=== PATIENT | female | born 1985 | race Caucasian/White ===

== ENCOUNTER → 2017-12-18 09:29 | Outpatient (CLI) | payer OTHER, SELFPAY ==
[2017-12-18 13:11] LABS: AST(SGOT) 14 U/L (15-37); Alanine Aminotransfer ALT/SGPT 43 U/L (13-56); Albumin, Serum 3.7 g/dL (3.2-5.0); Alkaline Phosphatase 112 U/L (45-117); Globulin 3.8 g/dL (2.2-4.2); Lipase 178 U/L (73-393); Protein, Total 7.5 g/dL (6.4-8.2)
== END ==
PROVIDERS: Family Provider Family Medicine; PCP Family Medicine; Visit Provider Internal Medicine Gastroenterology
DX: R10.9 Unspecified abdominal pain (principal); Z90.49 Acquired absence of other specified parts of digestive tract
CPT/HCPCS: 36415; 80076; 83690

== ENCOUNTER → 2018-01-28 15:40 | Outpatient (CLI) | payer OTHER, SELFPAY ==
--- NOTE | 2018-01-28 15:43 | RAD_ITS ---
STUDY: X-RAY - LUMBAR SPINE REASON FOR EXAM: Female, 33 years old. Low back pain. TECHNIQUE: 5 view(s) of the lumbar spine were obtained. COMPARISON: None FINDINGS: Normal lumbar lordosis. There is no substantial scoliosis. There is a normal alignment of the vertebrae. Bilateral pars defects of L5 without significant anterolisthesis. Normal disc heights throughout the lumbar spine. No compression fracture. The soft tissue structures are unremarkable. RAD/L/S Spine Min 4 Views IMPRESSION: Bilateral pars defects of L5 without significant anterolisthesis. No acute abnormalities or significant degenerative changes. Electronically Signed: Moise Bonilla MD at 22:30 EDT , Service support ,
== END ==
PROVIDERS: Family Provider Family Medicine; PCP Family Medicine; Visit Provider Family Medicine
DX: M54.42 Lumbago with sciatica, left side (principal)
CPT/HCPCS: 72110

== ENCOUNTER 2018-02-13 07:43 | Outpatient (RCR) | payer OTHER, SELFPAY ==
--- NOTE | 2018-02-13 09:02 | HP.PTEVAL_ITS ---
Patient's Visit Information GUERO RAINEY is a 33 year old F referred to Physical Therapy by Abel Franklin with a diagnosis of LUMBAGO WITH SCIATICA. Date of Evaluation: 02/13/18 Physical Therapist: Shara Cosme - Visit Plan Frequency: 2-3x /Week Duration: 4-6 Weeks Plan: POSTURE CORRECTION/STRENGTHENING, INSTRUCTION IN APPROPRIATE BODY MECHANICS AND ACTIVITY MODIFICATIONS. CORE STRENGTHENING AND STABILITY. ALIREZA LE ROM, STRETCHING AND STRENGTHENING. HEP INSTRUCTION. - Subjective Subjective: Diagnosis: LUMBAGO WITH SCIATICA. 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 MOSTLY SITTING. Disability: NO. Present symptoms: CENTRAL LOW BACK PAIN. RECENT HISTORY OF LEFT BUTTOCK AND THIGH PAIN. Present since: 6 WEEKS AGO. Pain Scale: WORST 3/10, LEAST 0/10. Currently: 10/30. Commenced as a result of: NO APPARENT REASON. Symptoms at onset: LOW BACK. Worse: BENDING FORWARD, HURTS WORSE IN THE MORNING, LIFTING. BENDING OVER TO LIFT ONE YEAR OLD AND 5 YEAR OLD. Better: PAIN MEDICATION - VICODIN. HASN'T HAD TO TAKE ANY FOR LAST COUPLE DAYS THOUGH. HEAT. Disturbed sleep: NO. Previous history/Previous treatment: 2006 SLIPPED AND FELL IN DORM SHOWER RESULTING IN LOW BACK PAIN. MRI SHOWED 2 HNP' S. TOOK ABOUT 18 MONTHS TO REVOVER. DID NOT DO PT. HISTORY OF SCIATICA WITH THE INJURY BUT NOT SURE WHICH LEG. ONE CHIRO VISIT. NO BACK SURGERY. NO INJECTIONS. Coughing/sneezing/straining: NEGATIVE. Gait: WAS WALKING HUNCHED OVER BUT BETTER NOW. Difficulty initiating urinatin: NO. Accidents: NO. Unexplained weight loss: NO. Imaging: RECENT LUMBAR X-RAY: Bilateral pars defects of L5 without significant anterolisthesis. No acute. abnormalities or significant degenerative changes. PMH: UNREMARKABLE. Recent major surgery: HYSTERECTOMY MARCH 2017. OTHER: IN A LOT OF PAIN AT FIRST AND THAT IS WHY SHE WENT TO THE DOCTOR. MUCH BETTER NOW. - Objective Sitting Posture: FAIR. Standing Posture: POOR. SLOUCHED WITH FORWARD HEAD AND ROUNDED SHOULDERS. Lordosis: NORMAL. Lateral shift: NO. Relevant shift: N /A. Active Correction of posture: NE. Other Observations: INDEP GAIT AND TRANSFERS. Motor deficit: ALIREZA LE STRENGTH 5/5 WITH MMT EXCEPT HIPS GRADED 4/5. Sensory deficit: NO. ROM deficit: TIGHT ALIREZA HS'S AND GASTROC SOLEUS COMPLEX 'S. Reflexes: 2/3 ALIREZA LE'S. Dural Signs: NEGATIVE ALIREZA LE'S. Lumbar mvmt loss: flex - MIN (APPEARS TO BE HAMSTRING LIMITED). ext - MIN WITH ERP. R SG - NIL. L SG - NIL WITH ERP. PAIN THAT IS PROVOKED IS CENTRAL LBP AND NO LE SX'S PROVOKED. Core strength: POOR. Palpation: NO PALPABLE TENDERNESS. - Goals Goal 1:: DECREASE C/O BACK AND LE SX'S Goal Time Frame: 4-6 Weeks Goal 2:: IMPROVE LIFTING, STANDING, TRAVEL, WORK AND HOMEMAKING FUNCTION Goal Time Frame: 4-6 Weeks Goal 3:: INSTRUCT IN PROPHYLAXIS Goal Time Frame: 4-6 Weeks - Rehabilitation Potential Rehabilitation Potential: Fair - Anticipated Interventions Patient/Client Instruction: Educate patient on: Condition, Plan of Care, Risk Factors, Benefits of Fitness Program For the Purpose of:: To improve self management Therapeutic Exercise to Include: Strength training, Body mechanics, Postural training, Flexibilty training, Dynamic Lumbar Stabilization For the Purpose of:: To decrease pain, To improve muscle performance and motor function, To improve ability of physical actions for home/community/work/leisure TENS: Yes IF ES: Yes Cryotherapy (ice pack, ice massage): Yes Thermo therapy (hot pack): Yes Ultrasound (thermal/non thermal): Yes For the Purpose of:: To decrease pain, To decrease swelling/inflammation, To improve nutrient delivery to tissue Thank you for the opportunity to evaluate your patient. For Medicare and Medicare HMO plans, please review the plan of care and approve it. It will need to be FAXED BACK to us at [phone] for Medicare purposes. Please let me know if there are questions or concerns regarding this plan of care. Physician Signature: Date:
--- NOTE | 2018-05-25 13:07 | HP.PT.NRP ---
HP - Discharge Summary (1) - Patient Information GUERO RAINEY was seen in my office for initial evaluation on 02/13/18. The following Plan of Care was established for this patient: Initial Frequency: 2-3x /Week Initial Duration: 4-6 Weeks - Anticipated Interventions Patient/Client Instruction: Educate patient on: Condition, Plan of Care, Risk Factors, Benefits of Fitness Program For the Purpose of:: To improve self management Therapeutic Exercise to Include: Strength training, Body mechanics, Postural training, Flexibilty training, Dynamic Lumbar Stabilization For the Purpose of:: To decrease pain, To improve muscle performance and motor function, To improve ability of physical actions for home/community/work/leisure TENS: Yes IF ES: Yes Cryotherapy (ice pack, ice massage): Yes Thermo therapy (hot pack): Yes Ultrasound (thermal/non thermal): Yes For the Purpose of:: To decrease pain, To decrease swelling/inflammation, To improve nutrient delivery to tissue This patient was last seen in our office 02/13/18. Pertinent comments regarding their Physical therapy will appear below: This patient has not returned to Physical Therapy and is appropriate to return to MD for further follow-up as needed. At this point I will be discontinuing this patient from physical therapy. I would be happy to see this patient again in the future if found appropriate by the physician. Thank you! Shara Cosme
== END 2018-02-13 19:00 | disposition home or self-care (01) ==
LOC: PT 07:43
PROVIDERS: Family Provider Family Medicine; PCP Family Medicine; Visit Provider Family Medicine
DX: M54.40 Lumbago with sciatica, unspecified side (principal)
CPT/HCPCS: 97161; 97530

== ENCOUNTER → 2018-04-22 12:55 | Outpatient (CLI) | payer OTHER, SELFPAY ==
[2018-04-22 14:24] LABS: Absolute Neutrophil Count 4.5 X10^3/uL (2.0-7.7); Basophil# 0.04 X10^3/uL; Basophil% 0.5 % (0-1); Eosinophil# 0.09 X10^3/uL; Eosinophils% 1.2 % (0-5); Hematocrit 38.5 % (37-47); Hemoglobin 12.3 g/dl (12.0-15.0); Lymphocyte % 31.4 % (19-41); Mean Corp Hgb Conc 31.9 g/gl (32-36); Mean Corpuscular Hgb 26.7 pg (27.0-32.0); Mean Corpuscular Volume 83.5 fL (81-99); Mean Platelet Vol. 10.9 fl (6.2-12.0); Monocyte# 0.37 X10^3/uL; Neutrophil # 4.52 X10^3/uL (2.7-7.7); Neutrophil % 61.8 % (47-70); Platelet Count 278 K/mm3 (150-450); RBC Distribution Width CV 13.5 % (11.6-14.6); Red Blood Count 4.61 M/mm3 (4.2-5.4); White Blood Count 7.3 K/mm3 (4.4-11.0)
[2018-04-22 14:25] LABS: Erythrocyte Sedimentation Rate 7 mm/hr (0-20)
[2018-04-22 14:30] LABS: POSITIVE COUNT NO; POSITIVE DIFFERENTIAL NO; POSITIVE MORPHOLOGY NO
[2018-04-22 15:07] LABS: AST(SGOT) 23 U/L (15-37); Alanine Aminotransfer ALT/SGPT 41 U/L (13-56); Albumin, Serum 3.7 g/dL (3.2-5.0); Alkaline Phosphatase 81 U/L (45-117); Anion Gap 8 (5-15); BUN 12 mg/dL (7-18); BUN/Creat Ratio 17.6 RATIO (10-20); CRP < 2.90 mg/L (0.0-3.0); Calcium,Total 8.5 mg/dL (8.5-10.1); Chloride 108 mmol/L (98-107); Creatinine, Serum 0.68 mg/dL (0.55-1.02); EST Glomerular Filtration Rate 107 mL/min (>60); Est Glom Filt Rate - Afr Amer 129 mL/min (>60); Follicle Stimulating Hormone 3.3 mIU/mL; Globulin 3.8 g/dL (2.2-4.2); Glucose 80 mg/dL (74-106); Luteinizing Hormone 6.8 mIU/mL; Potassium 4.3 mmol/L (3.5-5.1); Protein, Total 7.5 g/dL (6.4-8.2); Rheumatoid Factor < 10.0 IU/mL (<15); Sodium Level 142 mmol/L (136-145); Thyroid Stim Hormone (TSH) 1.84 uIU/mL (0.358-3.74); Uric Acid 3.7 mg/dL (2.6-6.0)
[2018-04-23 09:51] LABS: Vitamin D,25 Hydroxy 20.1 ng/mL (29.95-100.01)
[2018-04-24 16:09] LABS: ANTINUCLEAR ANTIBODIES DIRECT Negative (Negative)
== END ==
PROVIDERS: Family Provider Family Medicine; PCP Family Medicine; Visit Provider Family Medicine
DX: R23.2 Flushing (principal); M25.50 Pain in unspecified joint
CPT/HCPCS: 36415; 80053; 82306; 83001; 83002; 84443; 84550; 85025; 85652; 86038; 86140; 86431

== ENCOUNTER → 2019-03-17 | Outpatient (CLI) | payer OTHER, SELFPAY ==
[2017-10-16 19:56] VITALS: BMI 30.9
== END | disposition home or self-care (01) ==
PROVIDERS: Family Provider Family Medicine; PCP Family Medicine; Referring Provider Nurse Practitioner Adult Health; Visit Provider Nurse Practitioner Adult Health
DX: J02.9 Acute pharyngitis, unspecified (principal)
CPT/HCPCS: 87070

== ENCOUNTER → 2019-10-19 14:08 | Outpatient (CLI) | payer OTHER, SELFPAY ==
[2017-10-16 19:56] VITALS: BMI 30.9
[2019-10-19 16:12] LABS: Absolute Lymphocyte Count 2.19 X10^3/uL (0.83-4.51); Absolute Neutrophil Count 4.1 X10^3/uL (2.0-7.7); Basophil# 0.04 X10^3/uL; Basophil% 0.6 % (0-1); Eosinophil# 0.05 X10^3/uL; Eosinophils% 0.7 % (0-5); Hematocrit 37.8 % (37-47); Hemoglobin 12.2 g/dL (12.0-15.0); Lymphocyte # 2.19 X10^3/ul (4.0); Lymphocyte % 32.4 % (19-41); Mean Corp Hgb Conc 32.3 g/dL (32-36); Mean Corpuscular Hgb 26.9 pg (27.0-32.0); Mean Corpuscular Volume 83.4 fL (81-99); Mean Platelet Vol. 10.8 fl (6.2-12.0); Monocyte# 0.39 X10^3/uL; Monocyte% 5.8 % (0-10); NRBC Flagged by Analyzer 0 % (0-5); Neutrophil # 4.06 X10^3/uL (2.7-7.7); Neutrophil % 60.2 % (47-70); Platelet Count 258 K/mm3 (150-450); RBC Distribution Width CV 12.8 % (11.6-14.6); RBC Distribution Width SD 38.7 fl (35.1-43.9); Red Blood Count 4.53 M/mm3 (4.2-5.4); White Blood Count 6.8 K/mm3 (4.4-11.0)
[2019-10-19 16:58] LABS: Vitamin D,25 Hydroxy 31.7 ng/mL (29.95-100.01)
[2019-10-19 17:28] LABS: ALB/GLOB Ratio 1.1 RATIO (0.9-2.4); AST(SGOT) 31 U/L (15-37); Alanine Aminotransfer ALT/SGPT 81 U/L (13-56); Albumin, Serum 3.6 g/dL (3.2-5.0); Alkaline Phosphatase 82 U/L (45-117); Anion Gap 6 (5-15); BUN 10 mg/dL (7-18); BUN/Creat Ratio 15.7 RATIO (10-20); Calcium,Total 8.5 mg/dL (8.5-10.1); Chloride 108 mmol/L (98-107); Creatinine, Serum 0.64 mg/dL (0.55-1.02); EST Glomerular Filtration Rate 114 mL/min (>60); Est Glom Filt Rate - Afr Amer 138 mL/min (>60); Free T3 2.5 pg/mL (2.18-3.98); Globulin 3.4 g/dL (2.2-4.2); Glucose 81 mg/dL (74-106); Potassium 3.9 mmol/L (3.5-5.1); Sodium Level 140 mmol/L (136-145); T3 Uptake 31 % (30-39); T4 Free Direct 1.03 ng/dL (0.76-1.46); T4 Total, Thyroxin 8.9 ug/dL (4.8-13.9); T7 / Free Thyroxin Index 2.8 (1.4-4.5); Thyroid Stim Hormone (TSH) 0.85 uIU/mL (0.358-3.74)
[2019-10-23 13:19] LABS: Anti-Thyroglobulin AB < 1.0 IU/mL (0.0-0.9); Thyroglobulin, Serum Qt. 8.3 ng/mL (1.5-38.5); Thyroid Peroxidase AB < 6 IU/mL (0-34)
== END ==
PROVIDERS: Family Provider Family Medicine; PCP Family Medicine; Visit Provider Nurse Practitioner Adult Health
DX: R53.83 Other fatigue (principal); E55.9 Vitamin D deficiency, unspecified; L70.9 Acne, unspecified
CPT/HCPCS: 36415; 80053; 82306; 84432; 84436; 84439; 84443; 84479; 84481; 85025; 86376; 86800

== ENCOUNTER → 2019-10-23 10:24 | Outpatient (CLI) | payer OTHER, SELFPAY ==
[2017-10-16 19:56] VITALS: BMI 30.9
[2019-10-23 13:31] LABS: BUN 8 mg/dL (7-18); Creatinine, Serum 0.71 mg/dL (0.55-1.02); EST Glomerular Filtration Rate 101 mL/min (>60); Est Glom Filt Rate - Afr Amer 122 mL/min (>60)
== END ==
PROVIDERS: Family Provider Family Medicine; PCP Family Medicine; Referring Provider Family Medicine; Visit Provider Nurse Practitioner Adult Health
DX: R53.83 Other fatigue (principal); L70.9 Acne, unspecified
CPT/HCPCS: 36415; 82565; 84520

== ENCOUNTER → 2020-04-13 11:35 | Outpatient (CLI) | payer OTHER, SELFPAY ==
[2017-10-16 19:56] VITALS: BMI 30.9
[2020-04-13 16:28] LABS: ALB/GLOB Ratio 1.1 RATIO (0.9-2.4); AST(SGOT) 15 U/L (15-37); Alanine Aminotransfer ALT/SGPT 24 U/L (13-56); Albumin, Serum 3.9 g/dL (3.2-5.0); Alkaline Phosphatase 85 U/L (45-117); Anion Gap 5 (5-15); BUN 10 mg/dL (7-18); BUN/Creat Ratio 14.5 RATIO (10-20); Calcium,Total 9.4 mg/dL (8.5-10.1); Chloride 109 mmol/L (98-107); Creatinine, Serum 0.69 mg/dL (0.55-1.02); EST Glomerular Filtration Rate 104 mL/min (>60); Est Glom Filt Rate - Afr Amer 125 mL/min (>60); Globulin 3.7 g/dL (2.2-4.2); Glucose 84 mg/dL (74-106); Potassium 4.4 mmol/L (3.5-5.1); Protein, Total 7.6 g/dL (6.4-8.2); Sodium Level 142 mmol/L (136-145)
== END ==
PROVIDERS: PCP Family Medicine; Visit Provider Family Medicine
DX: R79.89 Other specified abnormal findings of blood chemistry (principal)
CPT/HCPCS: 36415; 80053

== ENCOUNTER → 2020-11-01 14:47 | Outpatient (CLI) | payer OTHER, SELFPAY ==
[2020-11-01 18:36] LABS: Anion Gap 6 (5-15); BUN 10 mg/dL (7-18); BUN/Creat Ratio 10.9 RATIO (10-20); Calcium,Total 8.6 mg/dL (8.5-10.1); Chloride 107 mmol/L (98-107); Creatinine, Serum 0.92 mg/dL (0.55-1.02); EST Glomerular Filtration Rate 74 mL/min (>60); Est Glom Filt Rate - Afr Amer 90 mL/min (>60); Glucose 76 mg/dL (74-106); Potassium 3.9 mmol/L (3.5-5.1); Sodium Level 139 mmol/L (136-145)
== END ==
PROVIDERS: PCP Family Medicine; Referring Provider Family Medicine; Visit Provider Family Medicine
DX: L70.9 Acne, unspecified (principal)
CPT/HCPCS: 36415; 80048

== ENCOUNTER → 2021-04-07 11:27 | Outpatient (CLI) | payer OTHER, SELFPAY ==
[2017-10-16 19:56] VITALS: BMI 30.9
[2021-04-07 11:30] LABS: Lyme Ab Screen Interpretation REF LAB
[2021-04-11 10:59] LABS: Lyme Scn Total Ab w/Rflx <0.91 ISR (0.00-0.90)
== END ==
PROVIDERS: PCP Family Medicine; Referring Provider Family Medicine; Visit Provider Family Medicine
DX: M25.50 Pain in unspecified joint (principal)
CPT/HCPCS: 36415; 86618

== ENCOUNTER → 2021-06-29 16:10 | Outpatient (CLI) | payer OTHER, SELFPAY ==
--- NOTE | 2021-06-29 16:14 | RAD_ITS ---
STUDY: X-RAY - RIGHT FOOT CLINICAL: Pain in right fifth metatarsal, no specific injury. TECHNIQUE: 3 view(s) of the foot. COMPARISON: None. FINDINGS: Normal talus, calcaneus, and tarsal bones. Normal visualized subtalar, talonavicular, calcaneocuboid, tarsal and tarsometatarsal articulations. Normal metatarsi. Normal metatarsophalangeal joint of the great toe. Normal tibial and fibular sesamoid bones. Normal interphalangeal joint of the great toe. Normal phalanges of the great toe. Normal second through fifth metatarsophalangeal joints. Normal interphalangeal joints and phalanges of the lesser toes. The soft tissue structures are unremarkable. RAD/Foot min 3 Views IMPRESSION: Normal x-ray examination of the right foot. Electronically Signed: Shaun Tam MD at 10:21 EDT Tel , Service support ,
== END ==
PROVIDERS: PCP Family Medicine; Referring Provider Family Medicine; Visit Provider Family Medicine
DX: M79.671 Pain in right foot (principal)
CPT/HCPCS: 73630

== ENCOUNTER → 2021-10-19 | Outpatient (CLI) | payer OTHER, SELFPAY | END | disposition home or self-care (01) | PROVIDERS: PCP Family Medicine; Visit Provider Family Medicine | DX: R09.89 Other specified symptoms and signs involving the circulatory and respiratory systems (principal) | CPT/HCPCS: 87635; U0003; U0005 ==

== ENCOUNTER 2022-01-03 09:19 | Outpatient (CLI) | payer OTHER, SELFPAY ==
[2022-01-03 11:01] LABS: Anion Gap 5 (5-15); BUN 8 mg/dL (7-18); BUN/Creat Ratio 9.5 RATIO (10-20); Calcium,Total 9.4 mg/dL (8.5-10.1); Chloride 108 mmol/L (98-107); Cholesterol 180 mg/dL (200); Creatinine, Serum 0.84 mg/dL (0.55-1.02); EST Glomerular Filtration Rate 81 mL/min (>60); Est Glom Filt Rate - Afr Amer 99 mL/min (>60); Glucose 83 mg/dL (74-106); High Density Lipoprotein 52 mg/dL; Sodium Level 139 mmol/L (136-145); Thyroid Stim Hormone (TSH) 1.98 uIU/mL (0.358-3.74); Triglycerides 73 mg/dL; Very Low Density Lipoprotein 15 mg/dL (5-40)
== END 2022-01-03 23:59 | disposition home or self-care (01) ==
LOC: MFPLAB 09:21
PROVIDERS: PCP Family Medicine; Referring Provider Family Medicine; Visit Provider Family Medicine
DX: L70.9 Acne, unspecified (principal); Z13.29 Encounter for screening for other suspected endocrine disorder; E55.9 Vitamin D deficiency, unspecified; Z13.220 Encounter for screening for lipoid disorders; Z90.710 Acquired absence of both cervix and uterus
CPT/HCPCS: 36415; 80048; 80061; 82306; 82670; 83001; 83002; 84443

== ENCOUNTER → 2022-12-04 | Outpatient (CLI) | payer OTHER, SELFPAY ==
[2022-12-04 12:56] LABS: AST(SGOT) 13 U/L (15-37); Alanine Aminotransfer ALT/SGPT 26 U/L (13-56); Albumin, Serum 3.7 g/dL (3.2-5.0); Alkaline Phosphatase 88 U/L (45-117); Anion Gap 7 (5-15); BUN 9 mg/dL (7-18); BUN/Creat Ratio 12.5 RATIO (10-20); Chloride 110 mmol/L (98-107); Cholesterol 171 mg/dL (200); Creatinine, Serum 0.72 mg/dL (0.55-1.02); EST Glomerular Filtration Rate 98 mL/min (>60); Est Glom Filt Rate - Afr Amer 118 mL/min (>60); Globulin 3.6 g/dL (2.2-4.2); Glucose 87 mg/dL (74-106); High Density Lipoprotein 55 mg/dL; Potassium 4.1 mmol/L (3.5-5.1); Protein, Total 7.3 g/dL (6.4-8.2); Sodium Level 141 mmol/L (136-145); Thyroid Stim Hormone (TSH) 2.13 uIU/mL (0.358-3.74); Triglycerides 84 mg/dL; Very Low Density Lipoprotein 17 mg/dL (5-40)
== END | disposition home or self-care (01) ==
LOC: MFPLAB 10:53
PROVIDERS: PCP Family Medicine; Referring Provider Family Medicine; Visit Provider Family Medicine
DX: Z13.220 Encounter for screening for lipoid disorders (principal); E66.9 Obesity, unspecified
CPT/HCPCS: 36415; 80053; 80061; 82533; 84443

== ENCOUNTER → 2024-02-03 | Outpatient (CLI) | payer OTHER, SELFPAY ==
[2024-02-03 12:35] LABS: Hematocrit 42.1 % (37-47); Hemoglobin 13.7 g/dL (12.0-15.0); Mean Corp Hgb Conc 32.5 g/dL (32-36); Mean Corpuscular Hgb 27.8 pg (27.0-32.0); Mean Corpuscular Volume 85.4 fL (81-99); Mean Platelet Vol. 11.3 fl (6.2-12.0); Platelet Count 253 K/mm3 (150-450); RBC Distribution Width CV 12.3 % (11.6-14.6); RBC Distribution Width SD 38.3 fl (35.1-43.9); Red Blood Count 4.93 M/mm3 (4.2-5.4); White Blood Count 5.4 K/mm3 (4.4-11.0)
[2024-02-03 13:13] LABS: ALB/GLOB Ratio 1.1 RATIO (0.9-2.4); AST(SGOT) 19 U/L (15-37); Alanine Aminotransfer ALT/SGPT 20 U/L (13-56); Albumin, Serum 3.7 g/dL (3.2-5.0); Alkaline Phosphatase 63 U/L (45-117); Anion Gap 6 (5-15); BUN 9 mg/dL (7-18); BUN/Creat Ratio 12.2 RATIO (10-20); Calcium,Total 8.8 mg/dL (8.5-10.1); Chloride 108 mmol/L (98-107); Creatinine, Serum 0.74 mg/dL (0.55-1.02); EST Glomerular Filtration Rate 94 mL/min (>60); Est Glom Filt Rate - Afr Amer 114 mL/min (>60); Ferritin 68 ng/mL (8-252); Globulin 3.4 g/dL (2.2-4.2); Glucose 82 mg/dL (74-106); Iron 98 ug/dL (50-170); Potassium 3.9 mmol/L (3.5-5.1); Protein, Total 7.1 g/dL (6.4-8.2); Sodium Level 140 mmol/L (136-145); Thyroid Stim Hormone (TSH) 1.16 uIU/mL (0.358-3.74)
[2024-02-03 13:32] LABS: Vitamin B12 596 pg/mL (211-911); Vitamin D,25 Hydroxy 39.1 ng/mL
== END | disposition home or self-care (01) ==
LOC: MFPLAB 11:33
PROVIDERS: PCP Family Medicine; Visit Provider Family Medicine
DX: R53.83 Other fatigue (principal); E55.9 Vitamin D deficiency, unspecified
CPT/HCPCS: 36415; 80053; 82306; 82607; 82728; 83540; 84443; 85027

== ENCOUNTER → 2024-12-23 | Outpatient (CLI) | payer OTHER, SELFPAY ==
--- NOTE | 2024-12-23 11:44 | RAD_ITS ---
PROCEDURE: FOOT MIN 3 VIEWS; TOE(S) MIN 2 VIEWS REASON FOR EXAM: Toe pain. TECHNIQUE: Three-view right 1st toe and three-view right foot series (combined dictation). COMPARISON: Right foot study 06/29/2021. RAD/Toe(s) Min 2 Views IMPRESSION: A mildly displaced oblique intra-articular Fracture is seen at the volar and me dial aspect of the right 1st proximal phalanx. No additional fracture site is seen. Minimal degenerative changes are seen of the 1st metatarsophalangeal joint, wit hout significant joint narrowing or hallux valgus. Reading Location: [id number]
--- NOTE | 2024-12-23 11:44 | RAD_ITS ---
PROCEDURE: FOOT MIN 3 VIEWS; TOE(S) MIN 2 VIEWS REASON FOR EXAM: Toe pain. TECHNIQUE: Three-view right 1st toe and three-view right foot series (combined dictation). COMPARISON: Right foot study 06/29/2021. RAD/Foot min 3 Views IMPRESSION: A mildly displaced oblique intra-articular Fracture is seen at the volar and me dial aspect of the right 1st proximal phalanx. No additional fracture site is seen. Minimal degenerative changes are seen of the 1st metatarsophalangeal joint, wit hout significant joint narrowing or hallux valgus. Reading Location: [id number]
== END | disposition home or self-care (01) ==
LOC: MTRAD 11:43
PROVIDERS: PCP Family Medicine
DX: M79.674 Pain in right toe(s) (principal)
CPT/HCPCS: 73630; 73660

== ENCOUNTER → 2025-01-07 | Outpatient (CLI) | payer OTHER, SELFPAY ==
--- NOTE | 2025-01-07 11:06 | RAD_ITS ---
PROCEDURE: TOE(S) MIN 2 VIEWS 01/07/2025 REASON FOR EXAM: TOE FRACTURE, RIGHT TECHNIQUE: 3 view(s) of the right great toe were obtained. COMPARISON: Comparison is made with prior study dated December 23, 2024. FINDINGS: Stable appearance of the fracture at the base of the proximal phalanx of the great toe. No significant bony callus is seen. The alignment is maintained. RAD/Toe(s) Min 2 Views IMPRESSION: Stable fracture at the base of the proximal phalanx of the great toe. Alignmen t is maintained. Reading Location: [id number]
== END | disposition home or self-care (01) ==
LOC: MTRAD 11:04
PROVIDERS: PCP Family Medicine; Referring Provider Family Medicine; Visit Provider Family Medicine
DX: S92.911A Unspecified fracture of right toe(s), initial encounter for closed fracture (principal)
CPT/HCPCS: 73660